=== PATIENT | female | born 1995 | race Caucasian/White ===

== ENCOUNTER 2020-04-08 20:05 | Inpatient (IN) | payer OTHER ==
[2020-04-08] MEDS ORDERED: DINOPROSTONE 10 MG VAGINAL SUPPOSITORY VG ONE (22:50)
--- NOTE | 2020-04-08 22:56 | HP ---
Past Medical History - Admission Chief Complaint: oligohydramnios at 38 weeks History Source: Patient Limitations to Obtaining History: No Limitations - Past Medical History ...: 1 ...Para: 0 ...Term: 0 ...: 0 ...Spon : 0 ...Induced : 0 ...Living Children: 0 ...LMP: 06/20/19 ...EDC by Sono: 04/23/20 - Past Surgical History Past Surgical History: Yes: None Hx Myomectomy: No Hx Transabdominal Cerclage: No - Smoking History Smoking history: Never smoked Have you smoked in the past 12 months: No - Alcohol/Substance Use Hx Alcohol Use: No History of Substance Use: reports: None - Social History Usual Living Arrangement: Yes: With Spouse Home Medications - Allergies Allergies/Adverse Reactions: Allergies Allergy/AdvReac Type Severity Reaction Status Date / Time No Known Allergies Allergy Verified 04/08/20 22:52 Physical Exam - Maternity Vital Signs: Vital Signs Temperature 98.1 F 04/08/20 20:26 Pulse Rate 100 H 04/08/20 20:26 Respiratory Rate 04/08/20 20:26 Blood Pressure 126/73 04/08/20 20:26 O2 Sat by Pulse Oximetry (%) Constitutional: Yes: Well Nourished Eyes: Yes: WNL HENT: Yes: WNL Neck: Yes: WNL Cardiovascular: Yes: WNL Lungs: Normal air movement - Abdominal Exam/OB Number of Fetuses: Single Presentation: Vertex Contractions: No Intensity: Unaware Monitor Mode: External Accelerations: Uniform Decelerations: None - Vaginal Exam/OB Vaginal Bleeding: No Speculum Exam: No Dilatation (cm): finger Effacement (%): 0 Amniotic Membrane Status: Intact Presentation: Vertex/Position Station: -2 - Physical Exam Edema: No Imaging - Results Ultrasound: Report Reviewed Problem List - Problems (1) Oligohydramnios antepartum Code(s): O41.00X0 - OLIGOHYDRAMNIOS, UNSP TRIMESTER, NOT APPLICABLE OR UNSP (2) 38 weeks gestation of Code(s): Z3A.38 - 38 WEEKS GESTATION OF Assessment/Plan intrauterine at 38 weeks with oligohydramnios, sent by Dr Lay for delivery and induction of labor first cervidil placed
[2020-04-08] MEDS ORDERED: ELECTROLYTE-148 SOLN 1,000 ML IV SCH (23:00)
[2020-04-08 23:18] LABS: BASO % 0.5 % (0-2.0); EOS % 0.8 % (0-4.5); HEMATOCRIT 38.1 % (32.4-45.2); HEMOGLOBIN 12.4 GM/dL (10.7-15.3); LYMPH % 19.4 % (8-40); MCH 27.1 pg (25.7-33.7); MCHC 32.5 g/dl (32.0-36.0); MEAN CELL VOLUME 83.3 fl (80-96); MONO % 5.9 % (3.8-10.2); NEUT % 73.4 % (42.8-82.8); PLATELET COUNT 213 K/MM3 (134-434); RBC 4.57 M/mm3 (3.60-5.2); RDW 15.7 % (11.6-15.6); WHITE BLOOD COUNT 11.4 K/mm3 (4.0-10.0)
[2020-04-08 23:38] LABS: INR 0.97 (0.83-1.09); PROTHROMBIN TIME (PATIENT) 11.4 SEC (9.7-13.0)
[2020-04-08 23:41] LABS: ACTIVATED PTT 28.7 SECONDS (25.2-36.5)
[2020-04-08 23:46] LABS: BLOOD UREA NITROGEN 7.6 mg/dL (7-18); CALCIUM 8.8 mg/dL (8.5-10.1); CREATININE 0.6 mg/dL (0.55-1.3)
[2020-04-09 04:35] VITALS: BMI 37.2
--- NOTE | 2020-04-09 09:06 | PN ---
Progress Note (short form) - Note Progress Note: cervix 2-3 cm 50% effaced vertex -2 AROM clear fluid. tracing reactive with good variability accelerations no decelerations category I at 140 BPM pt reports contractions but not being picked up on monitor. plan oxytocin augmentation.
[2020-04-09] MEDS ORDERED: BUTORPHANOL TARTRATE 1 MG/ML VIAL IVPB ONE (09:08)
[2020-04-09] MEDS ORDERED: PROMETHAZINE HCL 25 MG/1 ML VIAL IVPB ONE (09:08)
[2020-04-09] MEDS ORDERED: OXYTOCIN 30 UNITS in 0.9% NS 30 UNIT/500 ML INFUS.BAG IVPB SCH (09:15)
[2020-04-09] MEDS ORDERED: OXYTOCIN 30 UNITS in 0.9% NS 30 UNIT/500 ML INFUS.BAG IVPB ONE (09:43)
[2020-04-09] MEDS ORDERED: FENTANYL/BUPIVACAINE/NS/PF - PCEA - 50 ML DISP.SYRIN EP ONE (12:52)
[2020-04-09] MEDS ORDERED: NALOXONE HCL 0.4 MG/ML VIAL IVPUSH PRN (13:29)
[2020-04-09] MEDS ORDERED: FENTANYL/BUPIVACAINE/NS/PF - PCEA - 50 ML DISP.SYRIN EP SCH (13:30)
[2020-04-09] MEDS ORDERED: LIDO 2%/EPI 1:200000 PRESRVFRE (20 ML SDVIAL) ONE (14:02)
[2020-04-09] MEDS ORDERED: LIDOCAINE HCL 1% PRESERVATIVE FREE - 30ML VIAL ONE (15:03)
[2020-04-09] MEDS ORDERED: OXYTOCIN 20 UNITS in 0.9% NS 20 UNIT/1,000 ML INFUS.BAG IV ONE (15:03)
[2020-04-09] MEDS ORDERED: BISACODYL 10 MG SUPP.RECT RC PRN (15:14)
[2020-04-09] MEDS ORDERED: IBUPROFEN 600 MG TABLET (FP) PO PRN (15:14)
[2020-04-09] MEDS ORDERED: ACETAMINOPHEN 325 MG TABLET (FP) PO PRN (15:14)
[2020-04-09] MEDS ORDERED: BENZOCAINE 20% 57 GM BOTTLE TP PRN (15:14)
[2020-04-09] MEDS ORDERED: WITCH HAZEL 50% (TUCKS) 40 PAD/JAR PAD TP PRN (15:14)
[2020-04-09] MEDS ORDERED: OXYTOCIN 20 UNITS in 0.9% NS 20 UNIT/1,000 ML INFUS.BAG IV SCH (15:15)
--- NOTE | 2020-04-09 15:16 | PN ---
Delivery - Delivery Vaginal Delivery: No Problems Type of Anesthesia: Epidural Episiotomy/Laceration: None EBL (cc): 200 Delivery, Single - Feeding Plan Initial Plan: Elected not to breastfeed exclusively throughout hospitalization
[2020-04-09] MEDS ORDERED: PCA PUMP NR ONE (18:28)
[2020-04-10 08:35] LABS: BASO % 0.3 % (0-2.0); EOS % 0.5 % (0-4.5); HEMATOCRIT 35.2 % (32.4-45.2); HEMOGLOBIN 11.2 GM/dL (10.7-15.3); LYMPH % 23.4 % (8-40); MCH 26.5 pg (25.7-33.7); MCHC 31.9 g/dl (32.0-36.0); MEAN CELL VOLUME 83.1 fl (80-96); MEAN PLT VOLUME 9.4 fl (7.5-11.1); MONO % 6.5 % (3.8-10.2); NEUT % 69.3 % (42.8-82.8); PLATELET COUNT 187 K/MM3 (134-434); RBC 4.23 M/mm3 (3.60-5.2); RDW 15.5 % (11.6-15.6); WHITE BLOOD COUNT 11.2 K/mm3 (4.0-10.0)
--- NOTE | 2020-04-10 09:15 | PN ---
Progress Note (short form) - Note Progress Note: pt. without complaints vss - af abd: soft, nt ,nd. fundus firm ve: intact. mod lochia ext: no calf tenderness b/l a/p ppd 1 s/p pt. doing well pt. requesting d/c tmrw as baby not ready yet for discharge today
[2020-04-10 11:25] LABS: PLATELET ESTIMATE NORMAL
[2020-04-10] MEDS ORDERED: SENNOSIDES/DOCUSATE COMBO (SENNA PLUS) TABLET (UD) PO PRN (22:00)
[2020-04-11 11:14] VITALS: BP 117/69; PULSE 73; TEMP 98.1
--- NOTE | 2020-04-11 11:48 | DS ---
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: Vital Signs Temperature 98.1 F 04/11/20 10:00 Pulse Rate 73 04/11/20 10:00 Respiratory Rate 17 04/11/20 10:00 Blood Pressure 117/69 04/11/20 10:00 O2 Sat by Pulse Oximetry (%) 97 04/10/20 22:47 Constitutional: Yes: Well Nourished, No Distress Eyes: Yes: WNL HENT: Yes: WNL Neck: Yes: WNL Cardiovascular: Yes: WNL Respiratory: Yes: WNL Gastrointestinal: Yes: WNL Internal Exam Deferred: Yes ....Post : Yes: Uterus firm, Uterus non-tender Breast(s): Yes: WNL Musculoskeletal: Yes: WNL Extremities: Yes: WNL Edema: No Integumentary: Yes: WNL Wound/Incision: Yes: Clean/Dry Neurological: Yes: WNL ...Motor Strength: WNL Psychiatric: Yes: WNL Labs: CBC, BMP 04/10/20 07:38 04/08/20 22:55 Delivery - Delivery Type of Anesthesia: Epidural Episiotomy/Laceration: None, Right Mediolateral EBL (cc): 200 Delivery, Single - Stages of Labor Date 1st Stage Initiatied: 04/09/20 Time 1st Stage Initiated: 09:30 Date 2nd Stage Initiated: 04/09/20 Time 2nd Stage Initiated: 14:55 Date of Delivery: 04/09/20 Time of Delivery: 15:10 Time Placenta Delivered: 15:12 - 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 Present: [place]: Lucio Peterson Infant Gender: Female Weight: 2.835 kg Position: Left, OA Total Hours ROM (Hrs/Mins): 6Hrs/12MIns - 1 Minute Total Score: 8 5 Minutes Total Score: 9 - [place] Feeding Plan Initial Plan: Elected not to breastfeed exclusively throughout hospitalization Discharge Summary Problems reviewed: Yes Reason For Visit: CERVIDIL INDUCTION OF LABOR Current Active Problems 38 weeks gestation of (Acute) Oligohydramnios antepartum (Acute) Procedures: Principal: Hospital Course: Good Plan of Treatment: May go home today F/U in the [facility] in 4-6 weeks Condition: Good - Instructions Diet, Activity, Other Instructions: Regular Activity as tolerated Disposition: HOME - Home Medications Comprehensive Discharge Medication List: Ambulatory Orders Vitamins (Sjr) - 1 tab PO DAILY 04/09/20 Ibuprofen 600mg every 6 hrs/prn
== END 2020-04-11 13:55 | disposition home or self-care (01) | DRG 560 ==
LOC: JDEL 20:05 → JLDR 22:15 → J3W 04-09 17:50
PROVIDERS: ADMIT Specialist; ATTEND Specialist
PROC: 10E0XZZ Delivery of Products of Conception, External Approach (ICD-10-PCS; principal; 2020-04-09)
DX: O41.03X0 Oligohydramnios, third trimester, not applicable or unspecified (principal); Z3A.38 38 weeks gestation of pregnancy; Z37.0 Single live birth
CPT/HCPCS: 36415; 59409; 76819-TC; 80048; 85025; 85610; 85730; 86780; 86850; 86900; 86901; U0003